=== PATIENT | female | born 1980 | race Two or more races ===

== ENCOUNTER 2023-06-13 17:14 | Emergency (ER) | payer MEDICAID, OTHER ==
[~2023-06-13] VITALS: Ht 160 cm; Wt 148.7 kg
[2023-06-13 18:06] VITALS: BP 220/173; PULSE 94; RESP 16; O2SAT 98
== END 2023-06-13 20:18 | disposition left against medical advice (07) ==
LOC: ER 17:14
DX: R10.9 Unspecified abdominal pain (principal); Z53.21 Procedure and treatment not carried out due to patient leaving prior to being seen by health care provider